=== PATIENT | male | born 1955 | race Caucasian/White ===

== ENCOUNTER → 2024-03-13 07:11 | Outpatient (REF) | payer MEDICARE, OTHER, SELFPAY ==
[2024-03-13 08:37] LABS: % Basophils 0.8 % (0-2); % Eosinophils 4.1 % (0-6); % Immature Granulocytes 0.8 % (0-0.5); % Lymphocytes 36.2 % (20.5-51.1); % Monocytes 10.5 % (1.7-9.3); % Neutrophils 47.6 % (42.2-75.2); Absolute Basophils 0.1 10^3/uL (0-0.2); Absolute Eosinophils 0.3 10^3/uL (0-0.7); Absolute Immature Granulocytes 0.1 10^3/uL (0-0.05); Absolute Lymphocytes 2.8 10^3/uL (1.2-3.4); Absolute Monocytes 0.8 10^3/uL (0.1-0.6); Absolute Neutrophils 3.7 10^3/uL (1.4-6.5); Hematocrit 42.8 % (39.0-52.0); Hemoglobin 14.2 g/dL (13.0-18.0); Mean Corp Hgb Conc. 33.2 g/dL (33.0-37.0); Mean Corpuscular Hgb 29.7 pg (27.0-31.0); Mean Corpuscular Volume 89.5 fL (80.0-94.0); Nucleated Red Blood Cells % 0 % (-); Platelet Count 195 10^3/uL (130-400); Red Blood Cell Count 4.78 10^6/uL (4.70-6.10); Red Cell Dist. Width 13.7 % (11.5-14.5); White Blood Cell Count 7.8 10^3/uL (4.8-10.8)
[2024-03-13 09:09] LABS: ALT (SGPT) 32 U/L (0-50); AST (SGOT) 30 U/L (17-59); Albumin 4.1 g/dl (3.5-5.0); Alkaline Phosphatase 69 U/L (38-126); Blood Urea Nitrogen 24 mg/dl (9-20); Calcium 9.2 mg/dl (8.4-10.2); Carbon Dioxide 27 mmol/L (22-30); Chloride 105 mmol/L (98-107); Glucose 99 mg/dl (70-99); HDL Cholesterol 75 mg/dl; LDL Cholesterol, Calculated 89 mg/dl; Potassium 4.6 mmol/L (3.5-5.1); Sodium 139 mmol/L (135-145); Total Bilirubin 0.9 mg/dl (0.2-1.3); Total Cholesterol 185 mg/dl (50-199); Total Protein 6.6 g/dl (6.3-8.2); Triglyceride 109 mg/dl (10-149); Very Low Density Lipoprotein 21 mg/dl (0-30); eGFR > 60.00
[2024-03-13 09:32] LABS: PSA, Total - Screen 2.38 ng/ml (0.0-4.0); TSH Reflex To Free T4 1.68 uIU/ml (0.47-4.68)
== END ==
LOC: REG 07:11
PROVIDERS: ATTENDING PHYSICIAN Nurse Practitioner Adult Health
DX: I10 Essential (primary) hypertension (principal); D64.9 Anemia, unspecified; N40.0 Benign prostatic hyperplasia without lower urinary tract symptoms; Z12.5 Encounter for screening for malignant neoplasm of prostate
CPT/HCPCS: 36415; 80053; 80061; 84443; 85025; G0103

== ENCOUNTER → 2025-02-25 15:09 | Outpatient (REF) | payer MEDICARE, OTHER, SELFPAY | LOC: RAD 15:09 | PROVIDERS: ATTENDING PHYSICIAN Nurse Practitioner Family | DX: M79.662 Pain in left lower leg (principal) | CPT/HCPCS: 93971 ==

== ENCOUNTER → 2025-07-08 13:35 | Outpatient (REF) | payer MEDICARE, OTHER, SELFPAY ==
[2025-07-08 15:10] LABS: Hematocrit 42.9 % (39.0-52.0); Hemoglobin 14.1 g/dL (13.0-18.0); Mean Corp Hgb Conc. 32.9 g/dL (33.0-37.0); Mean Corpuscular Volume 87.2 fL (80.0-94.0); Nucleated Red Blood Cells % 0 % (-); Platelet Count 183 10^3/uL (130-400); Red Cell Dist. Width 13.6 % (11.5-14.5)
[2025-07-08 17:26] LABS: PSA, Total - Screen 2.38 ng/ml (0.0-4.0)
[2025-07-08 18:07] LABS: ALT (SGPT) 30 U/L (0-50); AST (SGOT) 29 U/L (17-59); Albumin 4.5 g/dl (3.5-5.0); Alkaline Phosphatase 58 U/L (38-126); Blood Urea Nitrogen 22 mg/dl (9-20); Calcium 9.5 mg/dl (8.4-10.2); Carbon Dioxide 25 mmol/L (22-30); Chloride 106 mmol/L (98-107); Glucose 86 mg/dl (70-99); HDL Cholesterol 88 mg/dl; LDL Cholesterol, Calculated 86 mg/dl; Potassium 4.4 mmol/L (3.5-5.1); Sodium 139 mmol/L (135-145); Total Protein 7.1 g/dl (6.3-8.2); Very Low Density Lipoprotein 20 mg/dl (0-30); eGFR > 60.00
== END ==
LOC: REG 13:35
PROVIDERS: ATTENDING PHYSICIAN Nurse Practitioner Adult Health
DX: I10 Essential (primary) hypertension (principal); N40.1 Benign prostatic hyperplasia with lower urinary tract symptoms; E78.00 Pure hypercholesterolemia, unspecified; Z12.5 Encounter for screening for malignant neoplasm of prostate
CPT/HCPCS: 36415; 80053; 80061; 84443; 85025; G0103

== ENCOUNTER 2025-08-30 15:04 | Emergency (ER) | payer MEDICARE, OTHER, SELFPAY ==
[2025-08-30 15:07] VITALS: BP 190/104
--- NOTE | 2025-08-30 16:02 | ED.SKININJ ---
HPI-Injury
General
Chief Complaint: Head Injury
Source: patient
Exam Limitations: none
Time Seen by Provider: 08/30/25 15:58
Nursing documentation reviewed up to this point in time: agreed with except (Has not had tetanus immunization in the past 5 years)
History of Present Illness-Injury
Initial Injury comments:
70-year-old male was working in his garage, pulling on a rope when the rope gave him and he stumbled backwards falling and hitting the back of his head on a wheelbarrow causing a laceration. There was no loss of consciousness. He denies headache.
He denies nausea. He denies neck pain or any other injury. He is unsure of his last tetanus immunization. Not anticoagulated.
Past History
Past History
ED Past Medical History: HTN
Social History
Tobacco: Non-smoker
Alcohol: Occasional
Personal:
Living: with family
Employment: Retired
Review of Systems
Review of Systems
Allergies reviewed?: Yes
All Other Systems: ROS reviewed and negative except as documented in HPI and ROS
Skin Exam
Laceration
Lower posterior scalp:
Length in cm: 4
Orientation: horizontal
Type of Laceration: simple
Any active bleeding?: no active bleeding
Phy Exam
Physical Exam
Physical Exam:
GENERAL: No acute distress. A&Ox3.
CONSTITUTIONAL: Afebrile.
EYES: clear, conjunctivae normal
ENMT: moist mucus membranes
RESPIRATORY: Regular respirations, nonlabored, lungs clear.
CARDIOVASCULAR: Regular rate and rhythm, no murmurs, no rubs.
MUSCULOSKELETAL: No spinal bony tenderness. Moves with ease. Well perfused.
SKIN: Warm, dry, pink
PSYCH: Normal mood and affect. Well kept, interactive and appropriate
NEUROLOGIC: Awake, alert and oriented. No focal neurological deficits
Course
Orders/Labs/Results
Orders:
Orders
08/30/25 16:01
Lidocaine/Epinephrine/Tetracai [Let Topical Anesthetic Gel] 3 ml TOPICAL NOW STA
Tetanus/Diphth/Acelpertussis [Adacel] 0.5 ml IM .ONCE ONE
Vital Signs
Initial and Last Documented VS:
Initial Vital Signs
Temp Pulse Resp BP Pulse Ox
98 F 72 16 190/104 98
08/30/25 15:07 08/30/25 15:07 08/30/25 15:07 08/30/25 15:07 08/30/25 15:07
Last Documented Vital Signs
Temp Pulse Resp BP Pulse Ox
98 F 61 16 161/94 99
08/30/25 15:07 08/30/25 17:11 08/30/25 17:11 08/30/25 17:11 08/30/25 17:11
Procedures
Laceration Closure
Lower posterior scalp:
Status of Wound: clean
Size of Wound in cm: 4
Description of Wound Edges: sharp
Preparation: cleaned with saline
Anesthesia: Topical-LET
Revision/Debridement: routine- no revision
Type of Closure: Dermabond-skin glue (Reinforced with skin adhesive and Steri-Strips)
MDM/Problems Addressed
MDM/Problems Addressed:
70-year-old male was working in his garage, pulling on a rope when the rope gave him and he stumbled backwards falling and hitting the back of his head on a wheelbarrow causing a laceration. There was no loss of consciousness. He denies headache.
He denies nausea. He denies neck pain or any other injury. He is unsure of his last tetanus immunization.
*Pulse Oximetry
SaO2: 98
Oxygen Mode of Delivery: Room air
Patient hypoxic: not evaluated
*Critical Care Note
Total Time (30-74mins, 75-104mins- exclusive of procedures): Not Applicable
ED Attending Note
-
Portions of this chart may have been created with voice recognition software.� Occasional wrong word or��sound alike� substitutions may have occurred due to the inherent limitations of voice recognition software.
Discharge Plan
Departure
Patient Disposition: Home (Routine Discharge)
Date of Disposition: 08/30/25
Time of Disposition: 17:03
Patient with high blood pressure during this ER visit?: No
Condition: Good
Discharge Problem:
Fall from slip, trip, or stumble, Laceration of scalp
Instructions: Laceration Repair With Glue (DC), Minor head injury in adults - ED (DC)
Prescriptions:
No Action
enalapril maleate [Vasotec] 20 MG tablet
20 mg PO DAILY
tamsulosin [Flomax] 0.4 MG capsule
0.4 mg PO DAILY
yt-grtq-aoanf-lycopene-ginkgo [One Daily Men's 50 Plus Memory] 1 EACH tablet
1 ea PO DAILY
celecoxib 200 MG capsule
200 mg PO DAILYPRN PRN (Reason: pain) Qty: 30 0RF
sennosides [senna] 1 TABLET tablet
2 tab PO BIDPRN PRN (Reason: constipation) 30 Days Qty: 120 0RF
acetaminophen 325 MG tablet
650 mg PO Q4HPRN PRN (Reason: Pain or fever) 30 Days 0RF
Rx Instructions:
do not exceed 4000mg in 24hours
aspirin 325 MG tablet,delayed release (DR/EC)
325 mg PO DAILY Qty: 30 0RF
docusate sodium 100 MG capsule
100 mg PO BIDPRN PRN (Reason: constipation) 30 Days Qty: 60 0RF
mupirocin 1 APPLIC ointment
1 applic intranasal BID 2 Days 0RF
Rx Instructions:
Administer for two days postop
ondansetron 4 MG tablet,disintegrating
4 mg PO Q8HPRN PRN (Reason: Nausea) Qty: 10 0RF
oxycodone 5 MG tablet
5 - 10 mg PO Q4HPRN PRN (Reason: pain) Qty: 60 0RF
Referrals:
Luz Marina Lemons MD [Family Provider, Internal Medicine] - As needed
Activity Restrictions/Additional Instructions:
As we discussed it takes about 7 days for this area to heal.
Keep the area dry for at least 24 hours.
You may briefly wet the are in the shower, then pat dry
If the strips have not fallen off by 7 days you may remove them.
Interventions
Interventions:
*Risk Screen - Suicide Last Done: 08/30/25 15:07
*General Assessment Last Done: 08/30/25 16:38
*Neglect/Abuse Screening Last Done: 08/30/25 15:07
*ED- Fall Risk Assessment Last Done: 08/30/25 16:38
*ED COVID-19 Vaccine History Last Done: 08/30/25 16:38
*ED Influenza Vaccine History Last Done: 08/30/25 16:38
*Nursing Disposition Last Done: 08/30/25 17:18
ED- Neurological Assessment Last Done: 08/30/25 16:39
ED-Skin Assessment Last Done: 08/30/25 16:39
Discharge Date and Time
Discharge Date/Time: 08/30/25 17:19
Print Language: INDONESIAN
[2025-08-30] MEDS: LET TOPICAL ANESTHETIC GEL 3 ML TOPICAL (16:31)
[2025-08-30] MEDS: ADACEL 0.5 ML IM (16:34)
[2025-08-30 16:37] VITALS: BMI 28.0
[2025-08-30 17:11] VITALS: BP 161/94
== END 2025-08-30 17:19 | disposition home or self-care (01) ==
LOC: EMR 15:04
PROVIDERS: EMERGENCY PHYSICIAN Emergency Medicine; FAMILY PHYSICIAN Internal Medicine
DX: S01.01XA Laceration without foreign body of scalp, initial encounter (principal); W01.198A Fall on same level from slipping, tripping and stumbling with subsequent striking against other object, initial encounter; Y92.008 Other place in unspecified non-institutional (private) residence as the place of occurrence of the external cause; I10 Essential (primary) hypertension; Z23 Encounter for immunization
CPT/HCPCS: 99282; 12002; 90471; 90715